=== PATIENT | male | born 1945 | race Caucasian/White ===

== ENCOUNTER → 2019-03-24 | Outpatient (CLI) | payer MEDICARE, OTHER ==
[~2019-03-24] MED LIST: ABAC300; ASPI81EC PO; METO50 PO; OXYC10TA19 PO; TIMO.25OPS OD; Tambocor100 MG; WARF5 PO
== END | disposition home or self-care (01) ==
LOC: LAB SHORT 14:50 → LAB EV 14:50
DX: N39.0 Urinary tract infection, site not specified (principal)
CPT/HCPCS: 87077; 87086; 87186

== ENCOUNTER → 2019-04-05 | Outpatient (CLI) | payer MEDICARE, OTHER ==
[2019-04-05 10:09] LABS: Source, Urine Clean Catch
[2019-04-05 13:09] LABS: Appearance, Urine Clear (Clear); Bilirubin, Urine Neg (Neg); Blood, Urine Neg (Neg); Color, Urine Yellow (P-Yellow); Glucose Qualitative, Urine Neg (Neg); Ketones, Urine Neg (Neg); Leukocyte Esterase, Urine Neg (Neg); Nitrite, Urine Neg (Neg); Protein, Urine Neg (Neg); Specific Gravity, Urine 1.015 (1.003-1.022); Urobilinogen, Urine NORM (Normal); pH, Urine 6.5 (5.0-8.0)
== END | disposition home or self-care (01) ==
LOC: LAB SHORT 10:07 → LAB 10:07
PROVIDERS: Legal Medicine
DX: N39.0 Urinary tract infection, site not specified (principal)
CPT/HCPCS: 81003

== ENCOUNTER 2020-10-13 06:45 | Day surgery (SDC) | payer MEDICARE, OTHER ==
[~2020-10-13] VITALS: Ht 188 cm; Wt 80.6 kg
--- NOTE | 2020-10-13 07:23 | NUR ---
10/13/20 0723 Jocelyn Saenz 1 TRY RIGHT HAND VALVE 1 TRY RIGHT UPPER ARM VALVE, WOULDNT ADVANCE
== END 2020-10-13 08:50 | disposition home or self-care (01) ==
LOC: ORSCSDS 06:45
PROVIDERS: Surgery
PROC: 0DJD8ZZ Inspection of Lower Intestinal Tract, Via Natural or Artificial Opening Endoscopic (ICD-10-PCS; principal; 2020-10-13 08:00)
DX: Z12.11 Encounter for screening for malignant neoplasm of colon (principal); Z86.010 Personal history of colon polyps; I48.91 Unspecified atrial fibrillation; Z79.82 Long term (current) use of aspirin; Z79.899 Other long term (current) drug therapy
CPT/HCPCS: J0461; J2405; J2704; J7120